=== PATIENT | male | born 1995 | race Hispanic/Latino ===

== ENCOUNTER 2016-08-22 02:11 | Emergency (ER) | payer SELFPAY ==
[~2016-08-22] VITALS: Ht 182.9 cm; Wt 118.2 kg
[~2016-08-22 02:11] MED LIST: OMEP20TA86 PO
[2016-08-22 02:15] VITALS: BP 137/75; PULSE 118; RESP 18; O2SAT 99
--- NOTE | 2016-08-22 02:31 | ED.REPORT ---
HPI-Extremity Problem Lower Date of Service Aug 22, 2016 ED Provider: Bharat Mckenzie MD Pt is a 21 y.o. male who presents to the ED c/o a right ankle injury onset prior to arrival. Pt reports associated right foot pain and difficulty ambulating due to pain. He denies associated swelling. Pt states that he was walking down the stairs and "twisted" his right ankle. Nursing Notes Stated Complaint: FALL/ RIGHT ANKLE PAIN Chief Complaint: Extremity Trauma Nursing Notes Reviewed: Yes Allergies: Coded Allergies: No Known Allergies (Verified , 04/16/12) Scheduled Omeprazole (Omeprazole) 20 Mg Tablet.dr 20 MG PO BID Scheduled PRN Ibuprofen (Ibuprofen) 600 Mg Tablet 600 MG PO QID PRN PRN For Pain General Time Seen by MD: 02:30 Chief Complaint Ankle injury right Hx Obtained From: Patient Arrived By: Walk-in Onset Occurred: Just prior to arrival Symptom Duration: Since onset Caused by: Accidental Context: Occurred at: Home injury Location: : Ankle right: Foot right Quality: Painful Severity: Current: Moderate Past Medical History Past Medical History none reported Past Surgical History none reported Family History denies family history of heart disease Smoking History Unknown if Ever Smoker Social History Other Social History: Good social support Ambulatory Status Independent Review of Systems Musculoskeletal: Reports: Extremity pain (Right foot), Joint pain (Right ankle) , Denies: Extremity swelling, Joint swelling Neurologic: Reports: Problem walking (due to pain) Complete sys rev & neg: except as marked. Physical Exam Initial Vital Signs Vital Signs (First) Date Time Temp Pulse Resp B/P Pulse Ox O2 Delivery O2 Flow Rate FiO2 08/22/16 02:15 38.2 118 18 137/75 99 Room Air Initial VS: Reviewed Head / Eyes: Atraumatic, Normocephalic Abdomen / GI: No distention Upper Extremities: Vascular intact, Neuro intact Skin: Warm, Dry, No cyanosis Neurologic: Alert, Oriented, Nonfocal Psychiatric: Mood/affect normal, Behavior normal, Normal thought content Lower Extremity / Pelvis / MS: Atraumatic, Inspection NL, No deformity, Neurologic intact, Vascular intact Ankle / Foot: Atraumatic, Inspection NL, No swelling, No deformity, Neurologic intact, Vascular intact Right Ankle: Positive: Tender medial malleolus, Negative: Swelling present... Right Foot: Positive: Tenderness present... (dorsal aspect), Negative: Swelling present... General/Constitutional: Awake, Alert, No acute distress, Well appearing, Well developed, Well hydrated, Well nourished, Not toxic appearing Respiratory / Chest: Atraumatic, Breath sounds NL, No respiratory distress Cardiovascular: Heart rate NL, Regular rhythm, Peripheral circulation NL Interpretation & Diagnostics X-Ray Interpretation Xray Interpretation: IMPRESSION: No fracture visualized X-Ray Ordered: Ankle right Interpretation / Wet Read by: Wet read ED physician Interpretation: Normal exam, No fracture/dislocation Xray Interpretation: IMPRESSION: No fracture visualized X-Ray Ordered: Foot right Interpretation / Wet Read by: Wet read ED physician Interpretation: Normal exam, No fracture/dislocation Re-Eval/Medical Decision Med Decision/Clinical Course 21-year-old presents with ankle and foot pain after an inversion injury of his ankle. X-rays negative. Neurovascular intact. Rogerio Aircast splint and crutches ice provided ibuprofen for pain relief. Follow up with PCP. Routine instructions provided. Source of Hx: Old records Re-Evaluation/Progress : Time of Eval: 03:12 Re-Evaluation/Progress Note: Pt rechecked. Discussed imaging results and plan for discharge, pt understands and agrees with plan. Counseled Regarding: Diagnosis Discharge & Departure Shift Change Sign-Out Response to Therapy: Improved Impression: Primary Impression: Ankle sprain Encounter type: initial encounter Involved ligament of ankle: unspecified ligament Laterality: right Qualified Code: S93.401A - Sprain of unspecified ligament of right ankle, initial encounter Disposition: Home Discharge Condition All VS Reviewed: Yes Condition: Improved Additional Instructions: Use an Aircast splint over a tall sock or the Rogerio wrap, and inside of his shoe, whenever up. Do not wear the device to bed. Do not bear weight without the device for the next 10-14 days. Use crutches as long as it is tender to bear weight. At the point that you can walk without crutches but in the splint, continue using the splint for another 7-10 days. Ibuprofen four times daily as needed for pain. Ice the ankle frequently over the first twenty-four hours. Then you may shift over to heat after that. Elevate the ankle whenever possible to reduce swelling. Follow up with your doctor in the office. Referrals: Shaniqua Emerson MD (PCP) Scribe Attestation Portions of this note were transcribed by Ravi Ruth. Dr. Jonah Roberts personally performed the history, physical exam and medical decision-making; I reviewed and confirmed the accuracy of the information in the transcribed note. Signed by: Rula Avery, 08/22/16 and 0313. copies to: Shaniqua Emerson MD,Bharat Clark MD Aug 22, 2016 02:31 RAVI RUTH Aug 22, 2016 02:39
[2016-08-22] MEDS ORDERED: IBUP-1827 PO (03:09)
[2016-08-22 03:24] VITALS: PULSE 100; RESP 18; O2SAT 100
--- NOTE | 2016-08-22 09:21 | DRSVH ---
PROCEDURE: X-RAY RIGHT FOOT COMPLETE, MINIMUM THREE VIEWS ([id number]) INDICATIONS: twisted foot/ankle TECHNIQUE: 3 views of the foot were acquired. COMPARISON: None. FINDINGS: Bones: No fractures or dislocations. No suspicious bony lesions. Soft tissues: No tibiotalar joint effusion. Achilles tendon appears normal. IMPRESSION: No displaced fracture seen. If there is continued pain, followup exam or additional kiki ging such as MRI or CT could be performed for further assessment. Dictated by: Efrain Samuels RRA Interpreted: Irene Pineda MD on 08/22/2016 at 9:20 Transcribed by: [place] on 08/22/2016 at 9:20 Approved by: Irene Pineda MD, PhD on 08/22/2016 at 17:00
--- NOTE | 2016-08-22 09:23 | DRSVH ---
PROCEDURE: X-RAY RIGHT ANKLE, MINIMUM THREE VIEWS ([id number]) INDICATIONS: twisted TECHNIQUE: 3 views of the ankle were acquired. COMPARISON: None. FINDINGS: Bones: No fractures or dislocations. Ankle mortise is normally aligned. No suspicious bony lesions . Soft tissues: No tibiotalar joint effusion. Achilles tendon appears normal. IMPRESSION: No displaced fracture seen. If there is continued pain, followup exam or additional kiki ging such as MRI or CT could be performed for further assessment. Dictated by: Efrain Samuels RRA Interpreted: Irene Pineda MD on 08/22/2016 at 9:23 Transcribed by: [place] on 08/22/2016 at 9:23 Approved by: Irene Pineda MD, PhD on 08/22/2016 at 17:01
== END 2016-08-22 03:25 | disposition home or self-care (01) ==
LOC: SED 02:11
DX: S93.401A Sprain of unspecified ligament of right ankle, initial encounter (principal); X50.1XXA Overexertion from prolonged static or awkward postures, initial encounter; Y92.009 Unspecified place in unspecified non-institutional (private) residence as the place of occurrence of the external cause; Y93.01 Activity, walking, marching and hiking; Y99.8 Other external cause status